=== PATIENT | male | born 1990 | race Caucasian/White ===

== ENCOUNTER → 2016-08-14 | Outpatient (CLI) | payer OTHER ==
--- NOTE | 2016-08-14 10:47 | RADIOLOGY REPORT (SQ) ---
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 TECHNIQUE: Dynamic and static ohara scale and color images acquired of both lower extremity venous sy stems. Selected spectral images acquired with additional compression and augmentation maneuvers. Imag es stored on PACS. LIMITATIONS: None. FINDINGS: RIGHT LEG COMMON FEMORAL AND FEMORAL: Normal phasicity, compression and augmentation. No visualized echogenic m aterial on ohara scale. No defects on color images. POPLITEAL: Normal compression and augmentation. No visualized echogenic material on ohara scale. No de fects on color images. CALF VESSELS: Normal compression and augmentation. No visualized echogenic material on ohara scale. No defects on color image. GSV AND SSV: Normal compression. No visualized echogenic material on ohara scale. No defects on color images. ANY DEEP VENOUS INSUFFICIENCY: Not evaluated. ANY EVIDENCE OF POPLITEAL CYST: No. OTHER: No other significant finding. LEFT LEG COMMON FEMORAL AND FEMORAL: Normal phasicity, compression and augmentation. No visualized echogenic m aterial on ohara scale. No defects on color images. POPLITEAL: Normal compression and augmentation. No visualized echogenic material on ohara scale. No de fects on color images. CALF VESSELS: Normal compression and augmentation. No visualized echogenic material on ohara scale. No defects on color images. GSV AND SSV: Normal compression. No visualized echogenic material on ohara scale. No defects on color images. ANY DEEP VENOUS INSUFFICIENCY: Not evaluated. ANY EVIDENCE POPLITEAL CYST: No. OTHER: No other significant finding. IMPRESSION: NO EVIDENCE DVT OR SVT IN EITHER LEG. TECHNICAL DOCUMENTATION: JOB ID: [id number] [employer]- All Rights Reserved
== END ==
LOC: SP 09:56
PROVIDERS: ATTEND Physician Assistant
DX: M79.661 Pain in right lower leg (principal); M79.662 Pain in left lower leg; M25.50 Pain in unspecified joint
CPT/HCPCS: 93970